=== PATIENT | female | born 1960 | race Caucasian/White ===

== ENCOUNTER 2023-08-27 08:13 | Inpatient (IN) ==
[2023-08-27] MEDS ORDERED: IOPAMIDOL 100 ML BOTTLE IV ONE (08:14)
[2023-08-27 09:08] LABS: Basophils # (Auto) 0.04 K/mcL (0.00-0.30); Basophils % (Auto) 0.3 % (0.0-2.0); Eosinophils # (Auto) 0.12 K/mcL (0.00-0.70); Hematocrit 46.4 % (34.1-44.9); Hemoglobin 15.4 g/dL (11.2-15.7); Lymphocytes % (Auto) 10.9 % (15.5-49.0); Mean Cell Volume 90.3 fL (80.0-100.0); Mean Corpuscular HGB Conc 33.2 g/dL (31.0-36.0); Mean Platelet Volume 10.6 fL (8.8-12.5); Monocytes % (Auto) 6.7 % (1.0-12.0); Platelet Count 365 K/mcL (140-440); RBC 5.14 M/mcL (3.59-5.38); Red Cell Distribution Width 13.8 % (11.5-14.5)
[2023-08-27 09:13] LABS: ALT/SGPT 8 U/L (<40); AST/SGOT 37 U/L (<32); Albumin 4.7 gm/dL (3.2-5.2); Albumin/Globulin Ratio 1.7 (1.0-2.3); Alkaline Phosphatase 85 U/L (39-117); Bilirubin,Total 0.4 mg/dL (0.1-1.0); Blood Urea Nitrogen 19 mg/dL (8-23); Calcium 10.7 mg/dL (8.6-10.4); Carbon Dioxide 23 mmol/L (22-30); Chloride 105 mmol/L (96-108); Globulin 2.8 gm/dL (2.2-3.7); Glomerular Filtration Rate 80; Glucose 136 mg/dL (70-105)
[2023-08-27] MEDS: 0.9 % SODIUM CHLORIDE 1,000 ML IV SCH (09:14)
[2023-08-27 09:47] LABS: POC INR 1.1 (0.8-1.2); POC Pro Time 13.2 (11.9-14.5)
[2023-08-27] MEDS: ASPIRIN 81 MG TAB.CHEW CHEWED ONE (11:11)
[2023-08-27] MEDS: ATORVASTATIN 40 MG TABLET PO ONE (11:11)
[2023-08-27 12:32] LABS: Appearance,Urine Clear (Clear); Bacteria,Urine 0 /hpf (0); Bilirubin,Urine Negative (Negative); Color,Urine Yellow; Culture Indicated,Urine No; Glucose,Urine (UA) Negative (Negative); Ketones,Urine 40 mg/dL (Negative); Leukocyte Esterase,Urine Negative /uL (Negative); Nitrate,Urine Negative (Negative); Protein,Urine Negative (Negative); Specific Gravity,Urine 1.015 (1.000-1.035); Urine Blood Trace-intact ery/mcL (Negative); Urine RBC 0 /hpf (0-3); Urine Squamous Epithelial Cell 0 /hpf (0-4); Urine WBC 0 /hpf (0-4); Urobilinogen,Urine Normal
[2023-08-27] MEDS ORDERED: NICOTINE POLACRILEX 2 MG GUM CHEW/PARK PRN (12:44)
[2023-08-27] MEDS: NICOTINE 21 MG PATCH TOPICAL SCH (12:55)
[2023-08-27] MEDS ORDERED: ONDANSETRON 4 MG/2 ML VIAL IV PRN (13:34)
[2023-08-27] MEDS ORDERED: ALBUTEROL SULFATE 2.5 MG/3 ML NEBULIZER NEB PRN (13:34)
[2023-08-27] MEDS: LACTATED RINGERS 1,000 ML IV SCH (14:38)
[2023-08-27] MEDS: 0.9 % SODIUM CHLORIDE 10 ML SYRINGE IV SCH (14:38)
[2023-08-27] MEDS: DOCUSATE SODIUM 100 MG CAPSULE PO SCH (20:17)
[2023-08-27] MEDS: SENNOSIDES 1 TABLET PO SCH (20:17)
[2023-08-27] MEDS: ACETAMINOPHEN 325 MG TABLET PO PRN (20:46)
[2023-08-27] MEDS: MELATONIN 3 MG TABLET PO PRN (23:07)
[2023-08-28] MEDS: MELATONIN 3 MG TABLET PO ONE (01:43)
[2023-08-28 06:01] LABS: Basophils # (Auto) 0.04 K/mcL (0.00-0.30); Basophils % (Auto) 0.5 % (0.0-2.0); Eosinophils % (Auto) 2.6 % (0.0-7.0); Hematocrit 42.3 % (34.1-44.9); Lymphocytes # (Auto) 2.21 K/mcL (1.50-4.80); Lymphocytes % (Auto) 29.1 % (15.5-49.0); Mean Cell Volume 90.6 fL (80.0-100.0); Mean Corpuscular HGB Conc 33.1 g/dL (31.0-36.0); Monocytes # (Auto) 0.58 K/mcL (0.10-0.90); Monocytes % (Auto) 7.6 % (1.0-12.0); Neutrophils % (Auto) 60.1 % (38.0-78.0); Platelet Count 292 K/mcL (140-440); RBC 4.67 M/mcL (3.59-5.38); Red Cell Distribution Width 13.9 % (11.5-14.5); WBC 7.6 K/mcL (4.5-11.0)
[2023-08-28 06:21] LABS: ALT/SGPT 6 U/L (<40); AST/SGOT 23 U/L (<32); Alkaline Phosphatase 68 U/L (39-117); Bilirubin,Direct < 0.2 mg/dL (0-0.3); Bilirubin,Total 0.4 mg/dL (0.1-1.0); Blood Urea Nitrogen 16 mg/dL (8-23); C-Reactive Protein < 0.30 mg/dL (0.03-0.80); Calcium 10.2 mg/dL (8.6-10.4); Carbon Dioxide 24 mmol/L (22-30); Chloride 107 mmol/L (96-108); Creatine Kinase 328 U/L (24-170); Glomerular Filtration Rate 93; Glucose 89 mg/dL (70-105); Lactate Dehydrogenase 149 U/L (135-225); Phosphorous 2.9 mg/dL (2.5-4.5); Uric Acid 3.8 mg/dL (2.5-8.0)
[2023-08-28] MEDS ORDERED: ALBUTEROL SULFATE 60 PUFF INHALER INH PRN (07:00)
[2023-08-28 07:59] LABS: HDL Cholesterol 57 mg/dL (>40); LDL Cholesterol,Calculated 68 mg/dL (<100); Non-HDL Cholesterol 81 mg/dL (<130); Triglycerides 66 mg/dL (<150)
[2023-08-28 08:06] LABS: Estimated Average Glucose(eAG) 120 mg/dL; Hemoglobin A1C 5.8 % Hgb (4.0-6.0)
[2023-08-28] MEDS: busPIRone 5 MG TABLET PO SCH (10:39)
[2023-08-28] MEDS: ATORVASTATIN 40 MG TABLET PO SCH (10:39)
[2023-08-28] MEDS: PANTOPRAZOLE 40 MG TABLET PO SCH (10:39)
[2023-08-28] MEDS: ASPIRIN 81 MG TAB.CHEW CHEWED SCH (10:39)
[2023-08-28] MEDS: ENOXAPARIN 40 MG/0.4 ML SYRINGE SQ SCH (10:40)
[2023-08-28] MEDS: MULTIVIT,THER IRON,CA,FA & MIN 1 TABLET PO SCH (10:40)
[2023-08-28] MEDS: DULoxetine 30 MG CAPSULE PO SCH (21:59)
[2023-08-28] MEDS: traZODone HCL 100 MG TABLET PO SCH (21:59)
[2023-08-29 06:25] LABS: Creatine Kinase 287 U/L (24-170)
[2023-08-30 06:01] LABS: Basophils # (Auto) 0.03 K/mcL (0.00-0.30); Basophils % (Auto) 0.5 % (0.0-2.0); Eosinophils # (Auto) 0.31 K/mcL (0.00-0.70); Eosinophils % (Auto) 4.7 % (0.0-7.0); Hematocrit 40.3 % (34.1-44.9); Hemoglobin 13.2 g/dL (11.2-15.7); Lymphocytes # (Auto) 1.87 K/mcL (1.50-4.80); Lymphocytes % (Auto) 28.5 % (15.5-49.0); Mean Cell Volume 92.4 fL (80.0-100.0); Mean Corpuscular HGB Conc 32.8 g/dL (31.0-36.0); Mean Platelet Volume 10.4 fL (8.8-12.5); Monocytes # (Auto) 0.48 K/mcL (0.10-0.90); Monocytes % (Auto) 7.3 % (1.0-12.0); Neutrophils % (Auto) 58.8 % (38.0-78.0); Platelet Count 258 K/mcL (140-440); RBC 4.36 M/mcL (3.59-5.38); Red Cell Distribution Width 13.7 % (11.5-14.5); WBC 6.6 K/mcL (4.5-11.0)
[2023-08-30 06:32] LABS: ALT/SGPT < 5 U/L (<40); AST/SGOT 20 U/L (<32); Albumin 3.8 gm/dL (3.2-5.2); Alkaline Phosphatase 64 U/L (39-117); Bilirubin,Total 0.3 mg/dL (0.1-1.0); Blood Urea Nitrogen 20 mg/dL (8-23); Calcium 9.8 mg/dL (8.6-10.4); Carbon Dioxide 26 mmol/L (22-30); Chloride 109 mmol/L (96-108); Globulin 1.9 gm/dL (2.2-3.7); Glomerular Filtration Rate 93; Glucose 93 mg/dL (70-105)
[2023-08-30] MEDS: SENNOSIDES/DOCUSATE SODIUM 1 TAB TABLET PO SCH (09:41)
[2023-08-30] MEDS: POLYETHYLENE GLYCOL 3350 17 GM PACKET PO SCH (09:41)
[2023-08-31] MEDS: ONDANSETRON 4 MG/2 ML VIAL IV PRN (05:56)
[2023-08-31 06:46] LABS: ALT/SGPT < 5 U/L (<40); AST/SGOT 23 U/L (<32); Albumin 3.9 gm/dL (3.2-5.2); Alkaline Phosphatase 69 U/L (39-117); Bilirubin,Total 0.3 mg/dL (0.1-1.0); Blood Urea Nitrogen 17 mg/dL (8-23); Calcium 9.8 mg/dL (8.6-10.4); Carbon Dioxide 25 mmol/L (22-30); Chloride 107 mmol/L (96-108); Glomerular Filtration Rate 93; Glucose 91 mg/dL (70-105)
[2023-08-31 07:50] LABS: Basophils # (Auto) 0.05 K/mcL (0.00-0.30); Basophils % (Auto) 0.7 % (0.0-2.0); Eosinophils # (Auto) 0.25 K/mcL (0.00-0.70); Eosinophils % (Auto) 3.6 % (0.0-7.0); Hematocrit 41.6 % (34.1-44.9); Hemoglobin 13.8 g/dL (11.2-15.7); Lymphocytes # (Auto) 1.77 K/mcL (1.50-4.80); Lymphocytes % (Auto) 25.8 % (15.5-49.0); Mean Cell Volume 91.6 fL (80.0-100.0); Mean Corpuscular HGB Conc 33.2 g/dL (31.0-36.0); Mean Platelet Volume 10.7 fL (8.8-12.5); Monocytes # (Auto) 0.52 K/mcL (0.10-0.90); Monocytes % (Auto) 7.6 % (1.0-12.0); Neutrophils % (Auto) 62.2 % (38.0-78.0); Platelet Count 285 K/mcL (140-440); RBC 4.54 M/mcL (3.59-5.38); Red Cell Distribution Width 13.5 % (11.5-14.5); WBC 6.9 K/mcL (4.5-11.0)
[2023-09-01 06:26] LABS: Basophils # (Auto) 0.02 K/mcL (0.00-0.30); Basophils % (Auto) 0.3 % (0.0-2.0); Eosinophils # (Auto) 0.26 K/mcL (0.00-0.70); Eosinophils % (Auto) 3.9 % (0.0-7.0); Hematocrit 40.7 % (34.1-44.9); Hemoglobin 13.2 g/dL (11.2-15.7); Lymphocytes # (Auto) 1.57 K/mcL (1.50-4.80); Lymphocytes % (Auto) 23.5 % (15.5-49.0); Mean Cell Volume 92.7 fL (80.0-100.0); Mean Corpuscular HGB Conc 32.4 g/dL (31.0-36.0); Monocytes # (Auto) 0.54 K/mcL (0.10-0.90); Monocytes % (Auto) 8.1 % (1.0-12.0); Neutrophils % (Auto) 64.1 % (38.0-78.0); Platelet Count 270 K/mcL (140-440); RBC 4.39 M/mcL (3.59-5.38); Red Cell Distribution Width 13.6 % (11.5-14.5); WBC 6.7 K/mcL (4.5-11.0)
[2023-09-01 07:11] LABS: ALT/SGPT < 5 U/L (<40); AST/SGOT 27 U/L (<32); Albumin 3.8 gm/dL (3.2-5.2); Albumin/Globulin Ratio 1.9 (1.0-2.3); Alkaline Phosphatase 67 U/L (39-117); Bilirubin,Total 0.3 mg/dL (0.1-1.0); Blood Urea Nitrogen 21 mg/dL (8-23); Calcium 9.7 mg/dL (8.6-10.4); Carbon Dioxide 25 mmol/L (22-30); Chloride 108 mmol/L (96-108); Glomerular Filtration Rate 93; Glucose 91 mg/dL (70-105)
[2023-09-02 06:16] LABS: Basophils # (Auto) 0.05 K/mcL (0.00-0.30); Basophils % (Auto) 0.7 % (0.0-2.0); Eosinophils # (Auto) 0.22 K/mcL (0.00-0.70); Eosinophils % (Auto) 3.2 % (0.0-7.0); Hematocrit 43.6 % (34.1-44.9); Hemoglobin 14.3 g/dL (11.2-15.7); Lymphocytes # (Auto) 1.72 K/mcL (1.50-4.80); Lymphocytes % (Auto) 24.7 % (15.5-49.0); Mean Cell Volume 90.8 fL (80.0-100.0); Mean Corpuscular HGB Conc 32.8 g/dL (31.0-36.0); Monocytes # (Auto) 0.65 K/mcL (0.10-0.90); Monocytes % (Auto) 9.3 % (1.0-12.0); Platelet Count 280 K/mcL (140-440); Red Cell Distribution Width 13.5 % (11.5-14.5)
[2023-09-02 06:42] LABS: ALT/SGPT 18 U/L (<40); AST/SGOT 43 U/L (<32); Albumin 4.4 gm/dL (3.2-5.2); Alkaline Phosphatase 78 U/L (39-117); Bilirubin,Total 0.4 mg/dL (0.1-1.0); Blood Urea Nitrogen 20 mg/dL (8-23); Calcium 10.2 mg/dL (8.6-10.4); Carbon Dioxide 26 mmol/L (22-30); Chloride 103 mmol/L (96-108); Globulin 2.2 gm/dL (2.2-3.7); Glomerular Filtration Rate 80; Glucose 87 mg/dL (70-105)
== END 2023-09-04 14:58 | disposition home or self-care (01) | DRG 880 ==
LOC: ED 08:13 → MEDSUR 13:21
PROVIDERS: ADMIT Internal Medicine; ATTEND Internal Medicine